=== PATIENT | male | born 1965 | race Caucasian/White ===

== ENCOUNTER 2018-09-02 07:08 | Day surgery (SDC) | payer OTHER ==
[~2018-09-02] VITALS: Ht 167.6 cm; Wt 138.3 kg
[2018-09-02] MEDS ORDERED: METF500T PO (10:26)
[2018-09-02] MEDS ORDERED: SIMV10TA1 PO (10:26)
[2018-09-02] MEDS ORDERED: LISI5TAB18 PO (10:26)
[2018-09-02] MEDS ORDERED: fentaNYL 0.05 MG/ML VIAL ONE (10:48)
[2018-09-02] MEDS ORDERED: LIDOCAINE 2% 1000 MG/50 ML VIAL INJ ONE (10:48)
== END 2018-09-02 11:59 | disposition home or self-care (01) ==
LOC: MTU 07:08 → MDS 07:08
PROVIDERS: ATTEND Internal Medicine Gastroenterology
DX: K76.0 Fatty (change of) liver, not elsewhere classified (principal); E11.9 Type 2 diabetes mellitus without complications; I10 Essential (primary) hypertension; E78.5 Hyperlipidemia, unspecified; E66.01 Morbid (severe) obesity due to excess calories; F17.210 Nicotine dependence, cigarettes, uncomplicated; Z79.899 Other long term (current) drug therapy; Z68.42 Body mass index [BMI] 45.0-49.9, adult
CPT/HCPCS: 47000; 76942; 82948; 88307; 88313; J2001; J3010; Q0092